=== PATIENT | female | born 1980 ===

== ENCOUNTER 2024-12-28 07:21 | Day surgery (SDC) | payer OTHER, SELFPAY | END 2024-12-28 11:25 | disposition home or self-care (01) | LOC: GI 07:21 | PROVIDERS: ATTENDING PHYSICIAN Internal Medicine Gastroenterology | DX: Z12.11 Encounter for screening for malignant neoplasm of colon (principal); K51.50 Left sided colitis without complications; R12 Heartburn; K44.9 Diaphragmatic hernia without obstruction or gangrene; K31.7 Polyp of stomach and duodenum | CPT/HCPCS: 45380; 43239; 88305 ==